=== PATIENT | female | born 1960 | race Caucasian/White ===

== ENCOUNTER 2020-09-14 07:00 | Outpatient (CLI) | payer BC, SELFPAY ==
--- NOTE | 2020-09-14 07:08 | USCV_ITS ---
Gudelia Malloy Age: 60 Gender: F : 1960 Exam Date: 09/14/2020 07:28 Ordering Phys: Sean Jensen MD Technologist: MILTON Galaviz Exam Location: [facility] [place] Indication: NEAR SYNCOPE BP: 130 / HR: 58 Rhythm: Sinus Technical Quality: Adequate MEASUREMENTS (Male / Female) Normal Values 2D ECHO LV Diastolic Diameter PLAX 3.6 cm 4.2 - 5.9 / 3.9 - 5.3 cm LV Systolic Diameter PLAX 2.3 cm LV Chamber Size 3.8 cm IVS Diastolic Thickness 1.2 cm 0.6 - 1.0 / 0.6 - 0.9 cm IVS Systolic Thickness 1.4 cm LVPW Diastolic Thickness 1.3 cm 0.6 - 1.0 / 0.6 - 0.9 cm LVPW Systolic Thickness 1.3 cm RV Chamber Size 2.6 cm LVOT Diameter 2.0 cm LV Ejection Fraction 2D Teich 65.4 % LV Ejection Fraction MOD 2C 46.4 % LV Ejection Fraction 2C AL 47.2 % LA Diameter 2.7 cm LA Width 2.7 cm LA Height 4.0 cm RA Width 3.3 cm RA Height 3.7 cm Aorta at Sinotubular Diameter 2.5 cm M-MODE LV Diastolic Diameter MM 5.1 cm 4.2 - 5.9 / 3.9 - 5.3 cm LV Systolic Diameter MM 3.2 cm LV Ejection Fraction MM Teich 67.8 % IVS Diastolic Thickness MM 0.8 cm 0.6 - 1.0 / 0.6 - 0.9 cm IVS Systolic Thickness MM 1.6 cm LVPW Diastolic Thickness MM 0.9 cm 0.6 - 1.0 / 0.6 - 0.9 cm LVPW Systolic Thickness MM 1.4 cm Aortic Annulus Diameter 3.2 cm LA Ao Ratio MM 0.9 MV E Point Septal Separation 0.2 cm DOPPLER AV Peak Velocity 143.0 cm/s LVOT Peak Velocity 90.0 cm/s AV Area Cont Eq vti 2.2 cm squared AV Area Cont Eq pk 2.1 cm squared MV Area PHT 3.5 cm squared Mitral E to A Ratio 1.1 MV E' Velocity 41.0 cm/s Mitral E to MV E' Ratio 7.0 Mitral E to LV E' Lateral Ratio 6.9 Mitral E to LV E' Septal Ratio 7.3 TR Peak Velocity 142.5 cm/s TR Peak Gradient 8.1 mmHg TR Mean Velocity 86.4 cm/s TR Mean Gradient 3.3 mmHg TR Velocity Time Integral 32.3 cm TV Peak E Velocity 61.0 cm/s Right Atrial Pressure 3.0 mmHg Pulmonary Artery Systolic Pressu 11.1 mmHg PV Peak Velocity 74.0 cm/s RV Acceleration Time 0.1 s RV Ejection Time 0.4 s RV AcT/ET 0.4 FINDINGS Left Ventricle Normal left ventricular cavity size. Normal left ventricular systolic function. No regional wall motion abnormalities. Left ventricular ejection fraction is estimated at 67 %. Grade I/IV diastolic dysfunction (abnormal relaxation filling pattern), normal to mildly elevated filling pressures. Right Ventricle The right ventricle is normal in size and function. Right Atrium The right atrium is normal in size. Left Atrium The left atrium is normal in size. Mitral Valve Structurally normal mitral valve without significant stenosis or prolapse. There is no mitral regurgitation. Aortic Valve Moderate aortic valve calcification. No aortic valve stenosis. Trace aortic valve regurgitation. Tricuspid Valve Structurally normal tricuspid valve without significant stenosis or regurgitation. Pulmonary artery systolic pressure is normal. Pulmonic Valve Structurally normal pulmonic valve without significant stenosis. There is no pulmonic regurgitation. Pericardium Normal pericardium without effusion. Aorta Normal ascending aorta dimension. CONCLUSIONS 1-Normal left ventricular cavity size. Normal left ventricular systolic function. No regional wall motion abnormalities. Left ventricular ejection fraction is estimated at 67 %. Grade I/IV diastolic dysfunction (abnormal relaxation filling pattern), normal to mildly elevated filling pressures. 2-Moderate aortic valve calcification. No aortic valve stenosis. Trace aortic valve regurgitation. 3-There is no pericardial effusion. 4-Pulmonary artery systolic pressure is within normal limits. 5-Right atrial pressure is around 5 mm of mercury. 6-There are no prior echocardiogram studies to compare. Yanelis Saab MD (Electronically Signed) Final Date: 14 September 2020 21:36 S
--- NOTE | 2020-09-14 07:08 | USCV_ITS ---
Gudelia Malloy Age: 60 Gender: F : 1960 Exam Date: 09/14/2020 07:44 Ordering Phys: Sean Jensen MD Technologist: Gloria Veras Exam Location: [place] Indication: Syncope Risk Factors: Previous Vascular Surgery: Right Brachial BP: / Left Brachial BP: / Right Left Velocity (cm/s) Spectral Plaque Velocity (cm/s) Spectral Plaque Syst/Diast Broadening Syst/Diast Broadening 68.40/ 22.10 Prox CCA 63.30 / 13.10 63.90/ 16.50 Mid CCA 64.40 / 24.00 48.50/ 15.40 Distal CCA 57.90 / 21.80 58.60/ 24.70 Prox ICA 47.60 / 19.20 54.00/ 25.60 Mid ICA 50.40 / 21.30 75.10/ 32.10 Distal ICA 42.60 / 14.20 67.80 ECA 56.80 1.17 ICA/CCA 0.78 Antegrade Vertebral Antegrade 31.90/ 17.00 cm/s 23.50/ 6.60 cm/s Tri Subclavian Tri 90.70 90.90 CONCLUSIONS Right ICA stenosis <50%. Left ICA stenosis <50%. Normal antegrade Doppler flow noted in the right vertebral artery. Normal antegrade Doppler flow noted in the left vertebral artery. Kash Lobo MD (Electronically Signed) Final Date: 14 September 2020 09:41 S
== END 2020-09-14 07:01 | disposition home or self-care (01) ==
LOC: US 07:05
PROVIDERS: PCP Family Medicine; Visit Provider Family Medicine
DX: R55 Syncope and collapse (principal); I34.1 Nonrheumatic mitral (valve) prolapse; E03.9 Hypothyroidism, unspecified; E78.5 Hyperlipidemia, unspecified; I35.1 Nonrheumatic aortic (valve) insufficiency; I65.23 Occlusion and stenosis of bilateral carotid arteries
CPT/HCPCS: 93306; 93880

== ENCOUNTER 2020-10-14 07:58 | Outpatient (CLI) | payer BC, SELFPAY ==
--- NOTE | 2020-10-14 08:08 | MM_ITS ---
WS: [id number] SCREENING DIGITAL MAMMOGRAM WITH CAD HISTORY: SCREENING COMPARISON: 09/08/2020 and 10/04/2006 Bilateral CC and MLO views submitted. Computer aided detection analyzed. Breast composition: There are scattered areas of fibroglandular density. No suspicious masses, microc alcifications or architectural distortion. MM/[id number] IMPRESSION: BI-RADS: 1-Negative FOLLOW UP: 1 Year Follow-up
== END 2020-10-14 07:59 | disposition home or self-care (01) ==
LOC: RADSHAW 08:02
PROVIDERS: PCP Family Medicine; Visit Provider Family Medicine
DX: Z12.31 Encounter for screening mammogram for malignant neoplasm of breast (principal)
CPT/HCPCS: 77067

== ENCOUNTER → 2021-03-25 08:22 | Outpatient (BNVA) | payer BC, SELFPAY | PROVIDERS: PCP Family Medicine; Visit Provider Surgery | DX: Z11.52 Encounter for screening for COVID-19 (principal) | CPT/HCPCS: 87635 ==

== ENCOUNTER 2021-04-01 09:38 | Day surgery (SDC) | payer BC, SELFPAY ==
[2021-03-30 09:46] VITALS: BMI 43.0
--- NOTE | 2021-04-01 10:02 | P.ANESASSM_ITS ---
Pre-Anesthetic Assessment Pre-Anesthetic Assessment: Height/Weight: Height 1.52 m Weight 99.79 kg Proposed Procedure: Operation Date: 04/01/21 11:30 Proposed Procedures p Colonoscopy 16658 Z12.11(Not Applicable) - Tony Venegas MD Was Beta Derrick taken within 24 hours: N/A Was Clonidine taken within 24 hours: N/A Social: Social History: No alcohol and No tobacco Exam: Pre-Anes Outpt Exam: alert, oriented x 3, clear to auscultation bilaterally and regular rate & rhythm Airway: Submandibular: WNL Cervical ROM: WNL MP: 1 Dentition: Caps History/ROS: No significant complaints Pulmonary: Pulmonary: None reported CV/HEM: CV/HEM: None reported : : None reported Hepatic: Hepatic: None reported GI: GI: None reported Metabolic: Metabolic: None reported Musc/skel: Musc/skel: None reported Neuropsych: Neuropsych: None reported Anesthetic Plan: ASA status: 2 Anesthesia: MAC Risk of > 500 ml blood loss (7ml/kg in children): No PFSH Anesthesia 2 PFSH: Surgical History (Updated 02/12/21 @ 08:21 by Tony Venegas MD) History of delivery History of cholecystectomy History of partial hysterectomy Family History Father Cancer PROSTATE Social History Smoking and tobacco status: former smoker Quit status (tobacco): has quit using tobacco Year quit tobacco: 1999 Data Anesthesia Cardiac Studies: Cardiac Event Monitor 08/18/20
[2021-04-01] MEDS: sodium chloride 0.9% 1,000 ML 30 ML IV (10:27)
--- NOTE | 2021-04-01 11:05 | W.PM.OPSFHP ---
Same Day Surgery H&P Indication for Procedure/HPI DATE OF PROCEDURE: April 01, 2021 CHIEF COMPLAINT/INDICATIONFOR SURGICAL PROCEDURE: screening colonoscopy PREOP DIAGNOSIS: screening colonoscopy PLANNED PROCEDRUE: Operation Date: 04/01/21 11:30 Proposed Procedures p Colonoscopy 57939 Z12.11(Not Applicable) - Tony Venegas MD Medications/Allergies* Home Medications Medication Instructions Recorded Confirmed Type No Known Home Medications 02/12/21 04/01/21 History Allergies/Adverse Reactions Allergy/AdvReac Type Severity Reaction Status Date / Time No Known Allergies Allergy Verified 04/01/21 10:19 Current Medications: Generic Name Dose Route Start Last Admin Trade Name Freq PRN Reason Stop Dose Admin Sodium Chloride 1,000 mls @ 30 mls/hr 04/01/21 10:30 04/01/21 10:27 Sodium Chloride 0.9% IV 04/02/21 10:29 30 mls/hr .Q24H EDUIN Administration Pertinent History/Comorbid Conditions* Surgical History (Updated 02/12/21 @ 08:21 by Tony Venegas MD) History of delivery History of cholecystectomy History of partial hysterectomy Family History (Updated 02/12/21 @ 08:10 by Lalita Purcell CMA) Father Cancer Father PROSTATE Social History Smoking and tobacco status: former smoker Quit status (tobacco): has quit using tobacco Year quit tobacco: 1999 Pertinent Exam Findings alert, oriented x 3 and regular rate & rhythm Recommendations Surgery/Procedure today Coding Level of Care Code Acute Youth Care Specialist for Terell Musa
[2021-04-01 11:25] VITALS: BP 129/78; PULSE 70; RESP 16; TEMP 36.1; O2SAT 97
== END 2021-04-01 11:51 | disposition home or self-care (01) ==
PROVIDERS: PCP Family Medicine; Visit Provider Surgery
PROC: 0DJD8ZZ Inspection of Lower Intestinal Tract, Via Natural or Artificial Opening Endoscopic (ICD-10-PCS; CPT 45378; principal; 2021-04-01 11:30)
DX: Z12.11 Encounter for screening for malignant neoplasm of colon (principal); K57.30 Diverticulosis of large intestine without perforation or abscess without bleeding; Z90.49 Acquired absence of other specified parts of digestive tract; Z90.710 Acquired absence of both cervix and uterus; Z87.891 Personal history of nicotine dependence
CPT/HCPCS: 45378; 96360; J2704; J7030